=== PATIENT | male | born 1995 | race Caucasian/White ===

== ENCOUNTER 2018-02-08 14:57 | Emergency (ER) | payer OTHER ==
[~2018-02-08] VITALS: Ht 182.9 cm; Wt 67.0 kg
[2018-02-08 15:03] VITALS: TEMP 36.8; Ht 182.9 cm; Wt 67.0 kg
[2018-02-08] MEDS ORDERED: PENI-82 PO (15:19)
[2018-02-08 15:34] VITALS: BP 128/68; PULSE 70; O2SAT 97
--- NOTE | 2018-02-08 17:13 | EMERGENCY ROOM VISIT NOTE ---
History Report prepared by Holly: Grover Gutierrez Under the Supervision of: Dr. Scotty Kruger M.D. First contact with patient: 15:06 Chief Complaint: ILLNESS Stated Complaint: SWOLLEN LYMPH NODES, JAW PAIN History of Present Illness The patient is a 22 year old male who presents to the Emergency Room with complaints of pain in the right side of the bottom of his jaw that started two hours ago. The patient states that the pain started suddenly and is now radiating up into the right ear. He was not eating when it started. He denies any fevers or cough. Patient states he spoke with his dentist who told him to come to the emergency department to begin treatment on antibiotics for possible tooth infection. Source of History: patient Onset: 2 hours ago Position: jaw (Bottom right) Timing: other (sudden onset) Associated Symptoms: No fevers, No cough Note: Radiating up into right ear. Review of Systems See HPI for pertinent positives and negatives. A total of ten systems were reviewed and were otherwise negative. Past Medical & Surgical patient denies any history Family History Patient reports no known family medical history. Social History Smoking Status: Never Smoker Marital Status: single Housing Status: lives with roommate Occupation Status: [employer] student Current/Historical Medications Scheduled Penicillin V Potassium (Veetids), 500 MG PO QID Allergies Coded Allergies: No Known Allergies (Unverified , 02/08/18) Physical Exam Vital Signs Date Time Temp Pulse Resp B/P (MAP) Pulse Ox O2 Delivery O2 Flow Rate FiO2 02/08/18 15:34 70 16 128/68 97 02/08/18 15:03 36.8 86 16 130/71 96 Room Air Physical Exam Physical Exam GENERAL: He is oriented to person, place, and time. He appears well-developed and well-nourished. He does not appear distressed. ____ HENT: Exam performed. Head: Normocephalic and atraumatic. Right Ear: External ear normal. No mastoid tenderness. Left Ear: External ear normal. No mastoid tenderness. Mouth/Throat: There is pain on percussion of the posterior right molar/ wisdom tooth, no obvious dental abscess. The oropharynx is clear and moist. No trismus in the jaw. No dental abscesses or uvula swelling. No oropharyngeal exudate or tonsillar abscesses. No tongue elevation or submental swelling.____ EYES: Conjunctivae and EOM are normal. Pupils are equal, round, and reactive to light. Right eye exhibits no discharge. Left eye exhibits no discharge. No scleral icterus. ____ NECK: Normal range of motion. Neck supple. No JVD present. No spinous process tenderness present. No carotid bruit present. No rigidity. No tracheal deviation and normal range of motion present. No Brudzinski's sign and no Kernig 's sign noted. ____ CV: Normal rate, regular rhythm, normal heart sounds and intact distal pulses. There is no peripheral edema. Palpable radial pulses bue. ____ PULM/CHEST: Effort normal and breath sounds normal. No respiratory distress. No stridor. He has no wheezes. He has no rales. Chest Wall: He exhibits no tenderness. ____ ABD: The abdomen is soft. Bowel sounds are normal. He has no distension. No mass is present. There is no tenderness. There is no rebound, no guarding, no Olivera's sign and no tenderness at McBurney's point. Rovsig negative MUSC/SKEL: Normal range of motion. There is no peripheral edema, tenderness or deformity. LYMPH: No cervical adenopathy. ____ NEURO: He is alert and oriented to person, place, and time. HE has normal strength. No cranial nerve deficit or sensory deficit. Coordination and gait normal. GCS eye subscore is 4. GCS verbal subscore is 5. GCS motor subscore is 6. Cerebellar tests wnl. ____ SKIN: Skin is warm and dry. He is not diaphoretic. ____ PSYCH: He has a normal mood and affect. His behavior is normal. Judgment and thought content normal. ____ Medical Decision & Procedures ED Course 1511: The patient was evaluated in room A2. A complete history and physical exam was performed. Vital signs stable. No obvious dental abscess, no trismus , no tongue elevation, no signs for Ramirez's angina.. Discharge with antibiotics and follow-up with dentistry. Plan of care discussed with patient and questions answered. The patient was given both verbal and printed discharge instructions. The patient verbalized understanding and ability to comply. The patient is to seek outpatient follow up as noted in the discharge instructions. The patient verbalized understanding and ability to comply. The patient is discharged in stable condition. The patient was instructed to return for worsening symptoms. Medical Decision Vital signs stable. No obvious dental abscess, no trismus, no tongue elevation , no signs for Ramirez's angina.. Discharge with antibiotics and follow-up with dentistry. Plan of care discussed with patient and questions answered. The patient was given both verbal and printed discharge instructions. The patient verbalized understanding and ability to comply. The patient is to seek outpatient follow up as noted in the discharge instructions. The patient verbalized understanding and ability to comply. The patient is discharged in stable condition. The patient was instructed to return for worsening symptoms. Medication Reconcilliation Current Medication List: was personally reviewed by me Blood Pressure Screening Patient's blood pressure: Normal blood pressure Impression Primary Impression: Pain, dental Scribe Attestation The scribe's documentation has been prepared under my direction and personally reviewed by me in its entirety. I confirm that the note above accurately reflects all work, treatment, procedures, and medical decision making performed by me. The chart was completed utilizing [employer] Speech voice recognition software. Grammatical errors, random word insertions, pronoun errors, and incomplete sentences are an occasional consequence of this system due to software limitations, ambient noise, and hardware issues. Any formal questions or concerns about the content, text, or information contained within the body of this dictation should be directly addressed to the physician for clarification. Departure Information Dispostion Home / Self-Care Prescriptions Penicillin V Potassium (Veetids) 500 Mg Tab 500 MG PO QID for 10 Days, #40 TAB Prov: Scotty Kruger M.D. 02/08/18 Referrals No Doctor, Assigned (PCP) Patient Instructions My [facility]
== END 2018-02-08 15:33 | disposition home or self-care (01) ==
LOC: C.EDB 14:59 → C.EDA 15:33
DX: K08.89 Other specified disorders of teeth and supporting structures (principal)